=== PATIENT | female | born 1950 | race Caucasian/White ===

== ENCOUNTER 2023-04-07 15:40 | Outpatient (REF) | payer MEDICARE, SELFPAY | END 2023-04-07 15:41 | disposition home or self-care (01) | LOC: NCHCN 15:40 | PROVIDERS: Visit Provider Nurse Practitioner Family | DX: L29.2 Pruritus vulvae (principal) | CPT/HCPCS: 87480; 87510; 87660 ==

== ENCOUNTER → 2023-07-07 03:18 | Outpatient (CLI) | payer MEDICARE, SELFPAY ==
--- NOTE | 2023-07-07 07:00 | DI.MAMMO_ITS ---
Exam(s) MAMMO SCREENING EXAM: MAMMO SCREENING CLINICAL HISTORY: screening,z12.39. TECHNIQUE: Bilateral full field digital CC and MLO mammographic images were obtained with 3D tomosyn thesis and utilizing computer aided detection (CAD). COMPARISON: Prior outside mammograms were reviewed. FINDINGS: In the left breast there is an asymmetric density seen on the CC view located 7 cm in from the nipple , less impressive on 3D imaging and unchanged from 2014. Therefore benign. No malignant-appearing m icrocalcification groups in the left breast. In the right breast there are multiple asymmetric densities which appear unchanged from prior outside mammograms. Benign-appearing microcalcifications are noted in both breasts. There is no significant architectural distortion nor skin thickening-retraction. IMPRESSION: Stable benign findings. No radiographic evidence of malignancy. BI-RADS Category 2 - Benign Findings Breast Density - Category B - Scattered areas of fibroglandular density Breast density Category C or D implies that the patient has dense breast tissue. Dense breast tissue can make it harder to find cancer on a mammogram. Dense breast tissue is also associated with an incr eased risk of breast cancer. This information about the result of the mammogram report was provided to the patient to raise their awareness. Use this report when you speak with the patient about their risks for breast cancer, which includes their family history. At that time, you may recommend additional screening tests (Ultrasoun d or MRI) as these tests may add significant information. A negative radiographic report should not delay biopsy if a dominant or clinically suspicious mass is present. Up to ten percent of cancers are not identified on mammography. A negative report may reinforce clinical impression. Adenosis and dense breasts may obscure an underlying neoplasm. False positive reports average 6 to 10%. Patient will receive a letter notifying them of these results.
== END ==
PROVIDERS: PCP Nurse Practitioner; Visit Provider Nurse Practitioner
DX: Z12.31 Encounter for screening mammogram for malignant neoplasm of breast (principal)
CPT/HCPCS: 77063; 77067

== ENCOUNTER 2023-07-30 05:24 | Outpatient (CLI) | payer MEDICARE, SELFPAY ==
[2023-07-30 13:00] LABS: ALT 20 U/L (14-59); AST 27 U/L (15-37); Alkaline Phosphatase 66 U/L (46-116); Anion Gap 9.9 mmol/L (3-11); BUN 19 mg/dL (7-18); Bilirubin, Total 0.9 mg/dL (0.2-1.0); CO2 29.1 mmol/L (21.0-32.0); CREATININE 0.9 mg/dL (0.55-1.02); Calcium 9.5 mg/dL (8.5-10.1); Calculated LDL 142 mg/dL (<100); Chloride 105 mmol/L (98-107); Cholesterol 228 mg/dL (<200); Estimated GFR 67.92 (mL/min/1.73m2); Glucose 93 mg/dL (74-106); HDL Cholesterol 71 mg/dL (40-60); Potassium 4.6 mmol/L (3.5-5.1); Sodium 144 mmol/L (136-145); Total Protein 7.5 g/dL (6.4-8.2); Triglyceride 76 mg/dL (<150)
== END 2023-07-30 05:25 | disposition home or self-care (01) ==
LOC: LOS 05:24
PROVIDERS: PCP Nurse Practitioner; Visit Provider Nurse Practitioner
DX: E78.5 Hyperlipidemia, unspecified (principal); E03.9 Hypothyroidism, unspecified; K21.9 Gastro-esophageal reflux disease without esophagitis; F41.8 Other specified anxiety disorders
CPT/HCPCS: 36415; 80053; 80061

== ENCOUNTER 2024-07-16 00:27 | Outpatient (CLI) | payer MEDICARE, SELFPAY ==
--- NOTE | 2024-07-16 08:04 | DI.MAMMO_ITS ---
Exam(s) MAMMO SCREENING EXAM: MAMMO SCREENING CLINICAL HISTORY: screening,z12.39. TECHNIQUE: Bilateral full field digital CC and MLO mammographic images were obtained with 3D tomosyn thesis and utilizing computer aided detection (CAD). COMPARISON: Prior outside mammograms dating back to 2016 were reviewed. FINDINGS: There has been no significant change in the appearance and distribution of the fibroglandular tissue. Asymmetric density laterally in the right breast on the CC view and medially in the right breast on C C view are unchanged from 2016 and therefore benign. Benign-appearing nodular densities towards the upper outer quadrant of left breast also are unchanged from prior mammograms. There are few benign microcalcifications again noted in the breasts. There are no new spiculated masses nor malignant appearing microcalcification groups. There is no significant architectural distortion nor skin thickening-retraction. IMPRESSION: Stable benign-appearing findings. No radiographic evidence of malignancy. BI-RADS Category 2 - Benign Findings Breast Density - Category B - Scattered areas of fibroglandular density Breast density Category C or D implies that the patient has dense breast tissue. Dense breast tissue can make it harder to find cancer on a mammogram. Dense breast tissue is also associated with an incr eased risk of breast cancer. This information about the result of the mammogram report was provided to the patient to raise their awareness. Use this report when you speak with the patient about their risks for breast cancer, which includes their family history. At that time, you may recommend additional screening tests (Ultrasoun d or MRI) as these tests may add significant information. A negative radiographic report should not delay biopsy if a dominant or clinically suspicious mass is present. Up to ten percent of cancers are not identified on mammography. A negative report may reinforce clinical impression. Adenosis and dense breasts may obscure an underlying neoplasm. False positive reports average 6 to 10%. Patient will receive a letter notifying them of these results.
== END 2024-07-16 00:47 ==
LOC: DI 00:27
PROVIDERS: PCP Nurse Practitioner; Visit Provider Nurse Practitioner
DX: Z12.31 Encounter for screening mammogram for malignant neoplasm of breast (principal); R92.323 Mammographic fibroglandular density, bilateral breasts; D24.1 Benign neoplasm of right breast; D24.2 Benign neoplasm of left breast
CPT/HCPCS: 77063; 77067

== ENCOUNTER 2024-09-28 10:52 | Outpatient (REF) | payer MEDICARE, SELFPAY ==
--- NOTE | 2024-09-28 09:15 | VUL_PTH ---
PATIENT: Olamide Davis LOC: [facility] U#:[id number] AGE/SX: 73/F ROOM: RE09/28/[address]: Clari Rausch DO : 1950 BED: DIS: 09/28/2024 SPEC #: [id number] RECD: 09/28/24 12:35 STATUS: LEANNE REQ #: [id number] CR: 09/28/24 09:[address]: Clari Rausch DEPT: Surgical Specimen RECD BY: Joann Colón ENTERED: 09/28/24 12:36 SP TYPE: VUL OTHR DR: Natalia Suggs APRN Tissues: 1 - VULVA BIOPSY Procedures: GROSS AND MICRO LEVEL 4 Comments: [id number]
== END 2024-09-28 10:53 | disposition home or self-care (01) ==
LOC: LBN 10:52
PROVIDERS: PCP Nurse Practitioner; Visit Provider Obstetrics & Gynecology
DX: L90.0 Lichen sclerosus et atrophicus (principal)
CPT/HCPCS: 88305